=== PATIENT | male | born 1985 | race Two or more races ===

== ENCOUNTER 2024-02-25 11:31 | Emergency (ER) | payer MEDICAID, OTHER ==
[~2024-02-25] VITALS: Ht 172.7 cm; Wt 90.0 kg
[2024-02-25 11:35] VITALS: BP 158/91; PULSE 61; RESP 18; O2SAT 99
== END 2024-02-25 15:34 | disposition left against medical advice (07) ==
LOC: EDBD 11:31 → ER 11:31
DX: R07.81 Pleurodynia (principal); Z53.21 Procedure and treatment not carried out due to patient leaving prior to being seen by health care provider